=== PATIENT | female | born 1970 | race American Indian/Alaskan Native ===

== ENCOUNTER 2021-01-26 02:25 | Emergency (ER) | payer BC ==
[2021-01-26] MEDS ORDERED: ACETAMINOPHEN 325 MG TAB PO ONE (02:42)
[2021-01-26] MEDS ORDERED: ACETAMINOPHEN 325 MG TAB ONE (02:43)
--- NOTE | 2021-01-26 03:49 | XRay Report ---
CLINICAL DATA: left ankle swelling and pain TECHNICAL DATA: Four views of the ankle were obtained in the AP, lateral, and obliques. FINDINGS: Complex ankle fractures present consistent with the eversion injury. Fracture distal fibula is noted as well as a transverse fracture of the medial malleolus. Lateral displacement-this location of the t alus in relation to the tibia is noted IMPRESSION: Complex fracture dislocation left ankle eventration Signer Name: Andrez Ramos MD Signed: 01/26/2021 3:45 AM Workstation Name: [id number]
[2021-01-26] MEDS ORDERED: ONDANSETRON 4 MG/2 ML INJ IV ONE (06:30)
[2021-01-26] MEDS ORDERED: fentaNYL 100 MCG/2 ML INJ IV ONE ×2 (06:30→08:15)
[2021-01-26] MEDS ORDERED: MIDAZOLAM 5 MG/5 ML INJ MDV IV ONE (06:30)
[2021-01-26] MEDS ORDERED: SODIUM CHLORIDE 0.9% 1000 ML 1,000 ML IV ONE (06:30)
--- NOTE | 2021-01-26 06:36 | Emergency Department Report ---
ED Lower Extremity HPI - General Chief Complaint: Extremity Injury, Lower Stated Complaint: FALL;LT ANKLE INJURY Time Seen by Provider: 01/26/21 06:10 Source: patient Mode of arrival: Ambulatory Limitations: No Limitations - History of Present Illness Initial Comments: Patient is 50 years old female with history of hypertension. Patient presented to the ER complaining of left ankle pain and deformity. Patient stated that she was walking outside and twisted her ankle. Patient denied any other injuries. Patient denied any loss of consciousness, neck pain, chest pain or any other extremities pain. MD Complaint: ankle injury -: Sudden, This morning Injury: Ankle: Left Type of Injury: eversion Severity: severe Severity scale (0 -10): 10 Improves With: immobilization Associated Symptoms: unable to bear weight - Related Data Previous Rx's Medication Instructions Recorded Last Taken Type Ondansetron [Zofran Odt] 4 mg PO Q8HR PRN #14 tab.rapdis 01/26/21 Unknown Rx oxyCODONE /ACETAMINOPHEN [Percocet 1 tab PO Q6HR PRN #14 tablet 01/26/21 Unknown Rx 5/325] Allergies Allergy/AdvReac Type Severity Reaction Status Date / Time ibuprofen Allergy Itching Verified 01/26/21 02:41 ED Review of Systems ROS: Stated complaint: FALL;LT ANKLE INJURY Other details as noted in HPI Comment: All other systems reviewed and negative Constitutional: denies: chills, fever Respiratory: denies: cough, shortness of breath, SOB with exertion Cardiovascular: denies: chest pain, palpitations, dyspnea on exertion Gastrointestinal: denies: abdominal pain, nausea, vomiting Musculoskeletal: denies: back pain Neurological: denies: headache, weakness ED Past Medical Hx - Past Medical History Previous Medical History?: Yes Hx Hypertension: Yes Hx CVA: Yes Hx Renal Disease: Yes (Not on dialysis) - Surgical History Past Surgical History?: Yes 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 - Social History Smoking Status: Never Smoker Substance Use Type: None - Medications Home Medications: Home Medications Medication Instructions Recorded Confirmed Last Taken Type Ondansetron [Zofran Odt] 4 mg PO Q8HR PRN #14 tab.rapdis 01/26/21 Unknown Rx oxyCODONE /ACETAMINOPHEN [Percocet 1 tab PO Q6HR PRN #14 tablet 01/26/21 Unknown Rx 5/325] ED Physical Exam - General Limitations: No Limitations General appearance: alert, in distress (pain) - Head Head exam: Present: atraumatic, normocephalic - ENT ENT exam: Present: normal exam, normal orophraynx, mucous membranes moist - Neck Neck exam: Present: normal inspection, full ROM. Absent: tenderness, meningismus - Respiratory Respiratory exam: Present: normal lung sounds bilaterally - Cardiovascular Cardiovascular Exam: Present: regular rate, normal rhythm, normal heart sounds - GI/Abdominal GI/Abdominal exam: Present: soft, normal bowel sounds. Absent: distended, tenderness, guarding, rebound, rigid, organomegaly, mass, bruit, pulsatile mass, hernia - Extremities Exam Extremities exam: Present: normal inspection, full ROM, normal capillary refill. Absent: tenderness - Back Exam Back exam: Present: normal inspection - Neurological Exam Neurological exam: Present: alert, oriented X3, CN II-XII intact - Psychiatric Psychiatric exam: Present: normal mood - Skin Skin exam: Present: warm, intact, normal color ED Course Vital Signs 01/26/21 01/26/21 01/26/21 02:34 06:30 06:36 Temperature 97.6 F Pulse Rate 69 71 79 Pulse Rate [ Intra-Procedure ] Pulse Rate [ Post-Procedure] Pulse Rate [Pre -Procedure] Respiratory 16 15 18 Rate Respiratory Rate [Intra- Procedure] Respiratory Rate [Post- Procedure] Respiratory Rate [Pre- Procedure] Blood Pressure 90/47 Blood Pressure [Intra- Procedure] Blood Pressure [Post-Procedure ] Blood Pressure [Pre-Procedure] O2 Sat by Pulse 100 98 99 Oximetry O2 Sat by Pulse Oximetry [ Intra-Procedure ] O2 Sat by Pulse Oximetry [Post -Procedure] O2 Sat by Pulse Oximetry [Pre- Procedure] 01/26/21 01/26/21 01/26/21 06:40 07:36 07:40 Temperature Pulse Rate 79 Pulse Rate [ Intra-Procedure ] Pulse Rate [ Post-Procedure] Pulse Rate [Pre -Procedure] Respiratory 16 17 18 Rate Respiratory Rate [Intra- Procedure] Respiratory Rate [Post- Procedure] Respiratory Rate [Pre- Procedure] Blood Pressure Blood Pressure [Intra- Procedure] Blood Pressure [Post-Procedure ] Blood Pressure [Pre-Procedure] O2 Sat by Pulse 100 96 96 Oximetry O2 Sat by Pulse Oximetry [ Intra-Procedure ] O2 Sat by Pulse Oximetry [Post -Procedure] O2 Sat by Pulse Oximetry [Pre- Procedure] 01/26/21 01/26/21 01/26/21 07:50 07:56 08:00 Temperature Pulse Rate 74 73 76 Pulse Rate [ Intra-Procedure ] Pulse Rate [ Post-Procedure] Pulse Rate [Pre -Procedure] Respiratory 18 13 14 Rate Respiratory Rate [Intra- Procedure] Respiratory Rate [Post- Procedure] Respiratory Rate [Pre- Procedure] Blood Pressure 124/76 124/76 149/73 Blood Pressure [Intra- Procedure] Blood Pressure [Post-Procedure ] Blood Pressure [Pre-Procedure] O2 Sat by Pulse 98 100 100 Oximetry O2 Sat by Pulse Oximetry [ Intra-Procedure ] O2 Sat by Pulse Oximetry [Post -Procedure] O2 Sat by Pulse Oximetry [Pre- Procedure] 01/26/21 01/26/21 01/26/21 08:06 08:10 08:17 Temperature Pulse Rate 75 62 Pulse Rate [ 75 Intra-Procedure ] Pulse Rate [ 62 Post-Procedure] Pulse Rate [Pre 76 -Procedure] Respiratory 17 15 Rate Respiratory 14 Rate [Intra- Procedure] Respiratory 16 Rate [Post- Procedure] Respiratory 14 Rate [Pre- Procedure] Blood Pressure 123/85 123/79 Blood Pressure 123/85 [Intra- Procedure] Blood Pressure 123/79 [Post-Procedure ] Blood Pressure 149/73 [Pre-Procedure] O2 Sat by Pulse 98 100 Oximetry O2 Sat by Pulse 98 Oximetry [ Intra-Procedure ] O2 Sat by Pulse 100 Oximetry [Post -Procedure] O2 Sat by Pulse 100 Oximetry [Pre- Procedure] - Consultations Consultation #1: 01/26/21 11:05 I discussed the patient with Dr. Longo, orthopedics doctor promotional marketing agent. Dr. Longo reviewed the images pre and postreduction and stated that is good reduction and patient can be discharged and follow-up with him in the office on January 29. - Moderate Sedation Indications: fracture/dislocation redu ASA Class: II Mallampati Airway Score: 2 Preparation: residential monitor applied, pulse oximeter, capnometry used, supplemental O2 applied, reversal agents at bedside, suction/airway equipment at bedside, IV secured Fentanyl: IV Midazolam: IV Complications: none Patient Tolerated Procedure: well, no complications - Orthopedic Fracture Reduction Fracture #1 Consent Obtained: written consent Time Out Performed: Yes Side: left Fracture Reduction Location: other (Left ankle) Analgesia: moderate sedation Technique: direct manipulation Post Reduction X-rays Demonstrate: anatomical reduction Post-Reduction Neuro Exam: intact Post-Reduction Vascular Exam: intact Splint Applied: Yes Patient Tolerated Procedure: well, no complications ED Lower Extremity MDM - Radiology Data Radiology results: report reviewed - Medical Decision Making Patient is 50 years old female with history of hypertension. Patient presented to the ER complaining of left ankle pain and deformity. Patient stated that she was walking outside and twisted her ankle. Patient denied any other injuries. Patient denied any loss of consciousness, neck pain, chest pain or any other extremities pain. Left ankle x-ray showed a complex fracture and dislocation. Under conscious sedation left ankle reduced. No complication. A Callands splint applied. Critical care attestation.: If time is entered above; I have spent that time in minutes in the direct care of this critically ill patient, excluding procedure time. ED Disposition Clinical Impression: Closed fracture dislocation of left ankle joint Disposition: - TO HOME OR SELFCARE Is pt being admited?: No Condition: Stable Instructions: Ankle Fracture, [id number], Moderate Conscious Sedation, Adult Prescriptions: oxyCODONE /ACETAMINOPHEN [Percocet 5/325] 1 tab PO Q6HR PRN #14 tablet PRN Reason: Pain Ondansetron [Zofran Odt] 4 mg PO Q8HR PRN #14 tab.rapdis PRN Reason: Nausea And Vomiting Referrals: FLORA CHOE MD [Other] - 3-5 Days MADYSON LONGO MD [Staff Physician] - 3-5 Days
--- NOTE | 2021-01-26 08:41 | XRay Report ---
Left ankle 2 views INDICATION: Ankle pain FINDINGS: Overall splint is in place. There is a fracture medial malleolus. Fibula fracture appears i mproved. Posterior malleolar fracture is also noted on lateral view. IMPRESSION: Multiple fracture deformities with interval improvement in alignment. Overlying cast and splint is in place. Signer Name: David Wise MD Signed: 01/26/2021 8:37 AM Workstation Name: [id number]
[2021-01-26 11:21] VITALS: BP 116/97
== END 2021-01-26 12:12 | disposition home or self-care (01) ==
LOC: ED 02:25
DX: S82.892A Other fracture of left lower leg, initial encounter for closed fracture (principal); I10 Essential (primary) hypertension; Z88.8 Allergy status to other drugs, medicaments and biological substances; Z79.899 Other long term (current) drug therapy; Z86.73 Personal history of transient ischemic attack (TIA), and cerebral infarction without residual deficits; Z98.890 Other specified postprocedural states; X50.1XXA Overexertion from prolonged static or awkward postures, initial encounter; Y93.89 Activity, other specified; Y92.89 Other specified places as the place of occurrence of the external cause; Y99.8 Other external cause status
CPT/HCPCS: 27788; 73600; 73610; 96360; 99284; J2250; J2405; J3010; J7030; 96361; 96374; 96375